=== PATIENT | male | born 1970 | race Caucasian/White ===

== ENCOUNTER → 2017-05-28 | Outpatient (CLI) | payer SELFPAY | END | disposition home or self-care (01) | LOC: LAB.O 11:58 | PROVIDERS: ATTEND Nurse Practitioner Family | DX: R94.5 Abnormal results of liver function studies (principal); R53.83 Other fatigue; F41.9 Anxiety disorder, unspecified ==

== ENCOUNTER → 2018-06-28 | Outpatient (CLI) | payer OTHER | LOC: LAB.O 09:50 | PROVIDERS: ATTEND Nurse Practitioner Family | DX: I10 Essential (primary) hypertension (principal); Z13.220 Encounter for screening for lipoid disorders ==

== ENCOUNTER 2020-04-21 17:37 | Emergency (ER) | payer OTHER ==
[2020-04-21] MEDS ORDERED: SODIUM CHLORIDE 0.9% (FLUSH) 10 ML SYG IV PRN (17:58)
[2020-04-21] MEDS ORDERED: SODIUM CHLORIDE 0.9% 1000ML 1,000 ML IVS ONE (17:59)
--- NOTE | 2020-04-21 17:59 | ED.PDOC ---
History of Present Illness - General Time Seen by Provider: 04/21/20 17:58 Source: patient - History of Present Illness Initial Comments: 50-year-old male who presents with chief complaint of cough and congestion. Reports he has been ill for about 10 days now. Began initially with congestion and sinus pressure and nasal drainage. He was seen last week in the clinic and prescribed oral steroids which he has been on for 4 days now. Reports that the nasal/upper respiratory symptoms seem to be improving. However he reports worsening of cough occasionally productive for phlegm, chest congestion, and mild intermittent dyspnea and chest tightness for the past several days. States chest tightness and dyspnea are worse with exertion, improved with rest. Tightness is located in the center of his chest without radiation, currently reports no pain while at rest. Admits to smoking cigarettes daily but denies any reported history of COPD or asthma and does not take an inhaler. He works at [employer] but has no known recent COVID exposure. His is also ill but with abdominal symptoms. Denies fevers, chills, abdominal pain, nausea, vomiting, diarrhea, urinary symptoms, sore throat, body aches. Allergies/Adverse Reactions: Allergies NO KNOWN ALLERGY Allergy (Verified 04/21/20 18:59) Home Medications: Ambulatory Orders Buspirone HCl 7.5 mg PO BID #20 tab 09/17/15 Zolpidem Tartrate [Ambien] 10 mg PO QPM #10 tab 09/17/15 Ztkbtqtfugbbh-Sipr-Jezwdvklrw [Fioricet] 1 ea PO Q8H PRN #21 tab 07/08/16 Cyclobenzaprine HCl [Flexeril] 5 mg PO TID PRN #30 tab 07/08/16 predniSONE [Prednisone] 20 mg PO DAILY #5 tab 07/08/16 Albuterol Sulfate [Proair Hfa] 2 puff INH Q4H PRN 30 Days #1 inhaler 04/21/20 Amoxicillin & Pot Clavulanate [Augmentin Tab] 875 mg PO BID 7 Days #14 tab 04/21/20 Review of Systems - Review of Systems Review of Systems: 04/21/20 19:09 As per HPI All other Systems: Reviewed and Negative Past Medical History (General) - Patient Medical History Hx Seizures: No Hx Stroke: No Hx Dementia: No Hx Asthma: No Hx of COPD: No Hx Cardiac Disorders: No Hx Congestive Heart Failure: No Hx Pacemaker: No Hx Hypertension: No Hx Thyroid Disease: No Hx Diabetes: No Hx Gastroesophageal Reflux: No Hx Renal Disease: No Hx Cancer: No Hx of HIV: No Hx MRSA: No - Vaccination History Hx Tetanus, Diphtheria Vaccination: No Hx Influenza Vaccination: No Hx Pneumococcal Vaccination: No - Social History Hx Tobacco Use: Yes Hx Chewing Tobacco Use: No Hx Alcohol Use: Yes - 12 pack a week Hx Substance Use: No Hx Substance Use Treatment: No Hx Depression: No Hx Physical Abuse: No Hx Emotional Abuse: No Hx Suspected Abuse: No Family Medical History - Family History Mother Family History: Unknown Living Status: Hx Family Hypertension: Yes Hx Family;Other: Alzheimer's Father Family History: Unknown Living Status: Unknown Physical Exam - Physical Exam General Appearance: Alert, Comfortable, No apparent distress Eye Exam: bilateral normal Ears, Nose, Throat: hearing grossly normal, pharyngeal erythema, other - No tonsillar exudate or swelling Neck: non-tender, full range of motion, supple, normal inspection Respiratory: chest non-tender, no respiratory distress, no accessory muscle use, other - Diminished breath sounds throughout with mild end expiratory wheezing noted throughout. No rales appreciated. Patient is talking comfortably in full sentences without any increased respiratory effort noted Cardiovascular/Chest: normal peripheral pulses, regular rate, rhythm, no edema, no gallop, no JVD, no murmur Peripheral Pulses: radial,right: 2+, radial,left: 2+ Gastrointestinal/Abdominal: non tender, soft, no organomegaly Back Exam: normal inspection, no CVA tenderness, no vertebral tenderness Extremity: normal range of motion, non-tender, normal inspection, no pedal e gino, no calf tenderness, normal capillary refill Neurologic: care tech II-XII nml as tested, no motor/sensory deficits, alert, normal mood/affect, oriented x 3 Skin Exam: normal color, warm/dry Progress - Progress Progress: 04/21/20 19:10 Cough, dyspnea, chest tightness -Suspect COPD/asthma a large contributor given his chronic smoking and diminished air movement and wheezing on auscultation. Consider also viral URI, COVID-19, pneumonia, sinus infection, strep, ACS, CHF, other -Patient stable -Obtain cardiac work-up, respiratory panel, strep, chest x-ray 04/21/20 21:22 -Patient remains stable. His lab work reveals leukocytosis with slight left shift and no bandemia, which I suspect is secondary to his recent steroid prescription. Troponin level is within normal limits. Strep testing is negative. His respiratory panel has returned positive for enterovirus and rhinovirus. He is negative for COVID-19. Chest x-ray is clear. -Discussed all findings with patient. Given his prolonged symptoms and productive cough, will treat with oral antibiotics with Augmentin twice daily for 7 days for acute bronchitis. Advised to quit smoking. Discussed instructions for returning to work. Yohannes Pablo MD Billing #[id number] 04/21/20 17:58 Telemetry .ONCE Sodium Chloride 0.9% (Flush) [Saline Flush Syringe] 10 ml IV PRN PRN 04/21/20 18:00 EKG STAT 04/21/20 18:50 STREP A SCREEN CULTURE Stat 04/22/20 09:00 Pulse Ox Daily Laboratory Results - last 24 hr 04/21/20 04/21/20 04/21/20 18:13 18:13 18:13 WBC 13.1 H RBC 4.42 L Hgb 13.5 L Hct 40.5 L MCV 91.7 MCH 30.6 MCHC 33.4 RDW 13.4 Plt Count 228 MPV 7.5 Absolute Neuts (auto) 9.60 H Absolute Lymphs (auto) 2.00 Absolute Monos (auto) 1.40 H Absolute Eos (auto) 0.00 Absolute Basos (auto) 0.00 Neutrophils % 73.4 Lymphocytes % 15.6 L Monocytes % 10.8 H Eosinophils % 0.0 L Basophils % 0.2 Sodium Potassium Chloride Carbon Dioxide Anion Gap BUN Creatinine BUN/Creatinine Ratio Random Glucose Serum Osmolality Calcium Troponin I 0.03 B-Natriuretic Peptide 72.3 Group A Strep Rapid 04/21/20 04/21/20 18:13 18:50 WBC RBC Hgb Hct MCV MCH MCHC RDW Plt Count MPV Absolute Neuts (auto) Absolute Lymphs (auto) Absolute Monos (auto) Absolute Eos (auto) Absolute Basos (auto) Neutrophils % Lymphocytes % Monocytes % Eosinophils % Basophils % Sodium 136 Potassium 4.1 Chloride 105 Carbon Dioxide 22 Anion Gap 13.1 BUN 30 H Creatinine 0.94 BUN/Creatinine Ratio 31.9 H Random Glucose 229 H Serum Osmolality 285.4 Calcium 9.0 Troponin I B-Natriuretic Peptide Group A Strep Rapid Negative - EKG/XRAY/CT EKG: Sinus - Normal sinus rhythm, heart rate 70, no ST elevations noted, possible Q waves in anterior leads likely consistent with prior MD, LVH criteria present, axis normal, intervals normal, no prior EKG for comparison. XRAY: chest - No acute processes per my read Departure - Departure Clinical Impression: Acute bronchitis Qualifiers: Bronchitis organism: rhinovirus Qualified Code(s): J20.6 - Acute bronchitis due to rhinovirus Time of Disposition: 21:24 Disposition: Discharge to Home or Self Care Condition: Fair Departure Forms: ED Discharge - Work Release Instructions: Acute Bronchitis, Adult (DC) Diet: resume usual diet Activity: increase activity as tolerated Referrals: Leonard Mcdaniel MD [Primary Care Provider] - 1-2 Weeks Prescriptions: Albuterol Sulfate [Proair Hfa] 2 puff INH Q4H PRN 30 Days #1 inhaler PRN Reason: Wheezing Amoxicillin & Pot Clavulanate [Augmentin Tab] 875 mg PO BID 7 Days #14 tab Home Medications: Ambulatory Orders Buspirone HCl 7.5 mg PO BID #20 tab 09/17/15 Zolpidem Tartrate [Ambien] 10 mg PO QPM #10 tab 09/17/15 Rxtmbcpvgtcet-Jyea-Qxwzxqvgnb [Fioricet] 1 ea PO Q8H PRN #21 tab 07/08/16 Cyclobenzaprine HCl [Flexeril] 5 mg PO TID PRN #30 tab 07/08/16 predniSONE [Prednisone] 20 mg PO DAILY #5 tab 07/08/16 Albuterol Sulfate [Proair Hfa] 2 puff INH Q4H PRN 30 Days #1 inhaler 04/21/20 Amoxicillin & Pot Clavulanate [Augmentin Tab] 875 mg PO BID 7 Days #14 tab 04/21/20 Additional Instructions: I strongly advised that you quit smoking at least until you are well but preferably permanently as it can continue to cause permanent lung and heart damage as well as increase your risk for cancer. Take the antibiotics as directed and finish the full course. You may use the prescribed inhaler as directed as needed for shortness of breath or wheezing. Return to the ED if you develop any concerning symptoms such as worsening shortness of breath, chest pain, etc. Follow-up with your primary care physician is recommended in the next week for repeat evaluation or sooner as needed. You were noted to have an elevated blood glucose level during this ED visit, which may be due to your recent steroid use, but you may need outpatient screening for diabetes as well.
[2020-04-21 19:15] VITALS: O2SAT 95
--- NOTE | 2020-04-21 21:12 | RAD ---
EXAM DESCRIPTION: XR Chest,1 View CLINICAL HISTORY: chest pain TECHNIQUE: Single frontal view of the chest is submitted. COMPARISON: 10/28/2009 FINDINGS: Heart: The cardiothoracic silhouette is within normal limits. Lungs: No focal consolidation. Mediastinum: Unremarkable Pleura: No appreciable effusion. No pneumothorax. Bones: Intact Upper abdomen: Unremarkable IMPRESSION: No acute disease. Electronically signed by: Tegan Dubon MD 04/21/2020 9:10 PM CDT
[2020-04-21] MEDS ORDERED: AMOXICILLIN & POT CLAVULANATE 875 MG TAB PO ONE (21:21)
[2020-04-21 21:51] VITALS: BP 128/91; TEMP 97.7
== END 2020-04-21 21:52 | disposition home or self-care (01) ==
LOC: ER 17:37
DX: J20.6 Acute bronchitis due to rhinovirus (principal); R07.89 Other chest pain; F17.210 Nicotine dependence, cigarettes, uncomplicated
CPT/HCPCS: 36415; 71045; 80048; 83880; 84484; 85025; 87070; 87635; 87880; 93005; 94760; J7030